=== PATIENT | female | born 1965 | race Caucasian/White ===

== ENCOUNTER 2016-12-07 15:10 | Emergency (ER) | payer BC, OTHER ==
[2016-12-07 16:52] LABS: URINE BILIRUBIN NEGATIVE (NEGATIVE); URINE BLOOD NEGATIVE (NEGATIVE); URINE GLUCOSE (UA) NEGATIVE (NEGATIVE); URINE LEUKOCYTE ESTERASE NEGATIVE (NEGATIVE); URINE NITRITE NEGATIVE (NEGATIVE); URINE PROTEIN NEGATIVE (NEGATIVE); URINE UROBILINOGEN NORMAL (0-1 mg/dl)
--- NOTE | 2016-12-07 16:55 | CT ---
HEAD CT WITHOUT CONTRAST HISTORY: Right-sided facial numbness. No intravenous contrast administered. Contiguous axial images acquired from skull base to vertex. COMPARISON:None. BRAIN VOLUME:Grossly unremarkable for patient age. VENTRICULAR SIZE:No gross ventriculomegaly. FOCAL MASS EFFECT:None. ACUTE INTRACRANIAL HEMORRHAGE:None. CALVARIUM:Grossly intact. VISIBLE PARANASAL SINUSES AND MASTOID AIR CELLS:Grossly clear. IMPRESSION: No gross mass effect, ventriculomegaly, or acute intracranial hemorrhage. Results were electronically transmitted to the electronic medical record at 12/07/2016 at 1652 hours.
[2016-12-07 16:59] LABS: URINE APPEARANCE CLEAR; URINE COLOR YELLOW
== END 2016-12-07 18:38 | disposition home or self-care (01) ==
LOC: ED 15:10
DX: F41.9 Anxiety disorder, unspecified (principal); R20.0 Anesthesia of skin; R53.83 Other fatigue; R07.89 Other chest pain; R53.1 Weakness